=== PATIENT | male | born 1975 | race Caucasian/White ===

== ENCOUNTER 2018-08-14 22:01 | Emergency (ER) | payer SELFPAY ==
[2018-08-14 22:14] VITALS: BP 147/90
[2018-08-14] MEDS ORDERED: Lidocaine 2% with EPINEPHrine 1:200,000 20 ML SDV ONE (22:41)
[2018-08-14] MEDS ORDERED: Lidocaine 2% with EPINEPHrine 1:200,000 20 ML SDV INJECT ONE (22:41)
[2018-08-14] MEDS ORDERED: Bacitracin/Neomycin/Polymyxin B Oint 0.9 GM U/D Packet TOP ONE (23:08)
[2018-08-14] MEDS ORDERED: Bacitracin/Neomycin/Polymyxin B Oint 0.9 GM U/D Packet ONE (23:08)
--- NOTE | 2018-08-14 23:18 | EDM.PDOC ---
ED HPI GENERAL MEDICAL PROBLEM - General Chief Complaint: Laceration Stated Complaint: head injury Time Seen by Provider: 08/14/18 22:20 Source of Information: Reports: Patient History Limitations: Reports: No Limitations - History of Present Illness INITIAL COMMENTS - FREE TEXT/NARRATIVE: 42-year-old male presents to the emergency room with a deep head scalp laceration. Patient states that he was at a park with the kids running when he ran into a 2 x 4 directly on the top of his head. He had immediate bleeding. He went home showered and upon further investigation by his she brought him in to have this laceration repaired as it was quite deep and gaping. He denies any loss of consciousness. He mainly complains of scalp tenderness. He does notice a little bit and neck soreness. He denies any numbness or tingling in his arms. Other than a mild headache he has no other complaints. Onset: Today Onset Date: 08/14/18 Onset Time: 21:00 Duration: Minutes:, Constant Location: Reports: Head Quality: Reports: Ache Severity: Mild Improves with: Reports: None Worsens with: Reports: None Associated Symptoms: Reports: No Other Symptoms - Related Data Allergies Allergy/AdvReac Type Severity Reaction Status Date / Time No Known Drug Allergies Allergy Cannot Verified 08/14/18 22:13 Remember Home Meds: Home Meds Cyclobenzaprine [Flexeril] 10 mg PO BEDTIME PRN 08/14/18 [History] Past Medical History Musculoskeletal History: Reports: Back Pain, Chronic Psychiatric History: Reports: Addiction Social & Family History - Family History Family Medical History: Noncontributory - Living Situation & Occupation Living situation: Reports: Single, with Family Occupation: Unemployed ED ROS GENERAL - Review of Systems Review Of Systems: ROS reveals no pertinent complaints other than HPI. ED EXAM, SKIN/RASH Exam: See Below Exam Limited By: No Limitations General Appearance: Alert, WD/WN, No Apparent Distress Eye Exam: Bilateral Eye: Abnormal EOM, PERRL Ears: Normal External Exam, Hearing Grossly Normal, Normal TMs Nose: Normal Inspection, Normal Mucosa, No Blood Throat/Mouth: Normal Inspection Head: Other (Scalp tenderness mild ecchymosis hematoma at the top of the scalp. There is a 12 cm half circumferential full-thickness laceration.) Neck: Normal Inspection, Supple, Non-Tender, Full Range of Motion. No: Tender Lateral, Tender Midline Respiratory/Chest: No Respiratory Distress Back Exam: Normal Inspection, Full Range of Motion Extremities: Normal Inspection, Normal Range of Motion Neurological: Alert, Oriented, CN II-XII Intact, Normal Cognition, No Motor/ Sensory Deficits Psychiatric: Normal Affect, Normal Mood Skin: Warm, Dry, Intact, Normal Color, No Rash Location, Skin: Head, Other (12 cm full-thickness laceration in a half troncoso or half circumferential pattern.) ED SKIN PROCEDURES - Laceration/Wound Repair [place] Head Appearance: Subcutaneous, Other (Half-troncoso or half circumferential pattern) Distal NVT: Neuro & Vascular Intact Local Anesthesia - Lidocaine (Xylocaine): 2% with EPI Local Anesthetic Volume: Other (20 mL) Skin Prep: Chlorhexidine (Hibiciens) Exploration/Debridement/Repair: Wound Explored, In a Bloodless Field Closed with: Darin Drain Placement: No Sterile Dressing Applied: Nurse Tetanus Status Addressed: Yes Complications: No Course - Vital Signs Last Recorded V/S: Last Vital Signs Temp 98.6 F 08/14/18 22:13 Pulse 82 08/14/18 22:13 Resp 20 08/14/18 22:13 BP 147/90 H 08/14/18 22:13 Pulse Ox 97 08/14/18 22:13 - Orders/Labs/Meds Meds: Medications Discontinued Medications Generic Name Dose Route Start Last Admin Trade Name Kiran PRN Reason Stop Dose Admin Lidocaine/Epinephrine Confirm 08/14/18 22:41 Xylocaine-Mpf 2%-Epi 1:200,000 Administered 08/14/18 22:42 Dose 20 ml .ROUTE .STK-MED ONE Neomycin/Polymyxin/Bacitracin Confirm 08/14/18 23:08 Triple Antibiotic Oint Administered 08/14/18 23:09 Dose 1 each .ROUTE .STK-MED ONE Departure - Departure Time of Disposition: 23:40 Disposition: Home, Self-Care 01 Condition: Good Clinical Impression: Laceration of head Qualifiers: Encounter type: initial encounter Location of open wound of head: scalp Foreign body presence: without foreign body Qualified Code(s): S01.01XA - Laceration without foreign body of scalp, initial encounter - Discharge Information Instructions: Laceration Care, Adult, Wound Closure Removal Forms: ED Department Discharge - Assessment/Plan Assessment:: Head laceration 12 cm full-thickness in length Plan: 1. Keep laceration clean dry and intact. 2. Keep laceration out of the open sun 3. Staple removal in 5-7 days. 4. tetanus was updated today.
[2018-08-14] MEDS ORDERED: Diphtheria,Pertussis(Acell),Tetanus Vaccine 0.5 ML SDV IM ONE (23:19)
== END 2018-08-14 23:20 | disposition home or self-care (01) ==
LOC: KA.ED 22:01
DX: S01.01XA Laceration without foreign body of scalp, initial encounter (principal); Z23 Encounter for immunization; W19.XXXA Unspecified fall, initial encounter
CPT/HCPCS: 12004; 90471; 90715; 99283

== ENCOUNTER 2023-11-15 14:24 | Inpatient (IN) | payer BC, MEDICAID ==
[2023-11-15] MEDS ORDERED: Sodium Chloride 0.9% 10 ML Syringe FLUSH PRN (14:36)
[2023-11-15] MEDS: Albuterol/Ipratropium 3.0-0.5 MG/3 ML Neb Soln NEB ONE (14:41)
[2023-11-15] MEDS: Sodium Chloride 0.9% 1,000 ML IV ONE ×2 (14:42→16:01)
[2023-11-15] MEDS: LORazepam 2 MG/ML SDV IVPUSH ONE (14:43)
[2023-11-15 14:47] LABS: BASOPHILS ABSOLUTE AUTO 0.06 10^3/uL (0.00-0.10); BASOPHILS PERCENT AUTO 0.3 % (0.0-1.0); EOSINOPHILS ABSOLUTE AUTO 0.02 10^3/uL (0.10-0.30); EOSINOPHILS PERCENT AUTO 0.1 % (1.0-3.0); HEMATOCRIT 49.7 % (40.0-52.0); HEMOGLOBIN 16.2 g/dL (13.0-17.0); IMMATURE GRAN ABSOLUTE AUTO 0.02 10^3/uL (0.00-0.50); IMMATURE GRAN PERCENT AUTO 0.1 % (0.0-5.0); LYMPHOCYTES ABSOLUTE AUTO 5.15 10^3/uL (1.00-4.00); LYMPHOCYTES PERCENT AUTO 27.3 % (20.0-40.0); MEAN CORPUSCULAR HEMOGLOBIN 29.6 pg (27.0-31.0); MEAN CORPUSCULAR HGB CONC 32.6 g/dL (32.0-36.0); MEAN CORPUSCULAR VOLUME 90.7 fL (82.0-92.0); MEAN PLATELET VOLUME 8.5 fL (7.4-10.4); MONOCYTES ABSOLUTE AUTO 1.39 10^3/uL (0.10-0.80); MONOCYTES PERCENT AUTO 7.4 % (2.0-8.0); NEUTROPHILS ABSOLUTE AUTO 12.23 10^3/uL (2.50-7.00); NEUTROPHILS PERCENT AUTO 64.8 % (50.0-70.0); PLATELET COUNT,PLT 466 10^3/uL (150-400); RED BLOOD CELL COUNT 5.48 10^6/uL (4.50-6.00); RED CELL DISTRIBUTION WIDTH 13.1 % (11.5-14.5); WHITE BLOOD CELL COUNT,WBC 18.87 10^3/uL (5.00-10.00)
[2023-11-15 15:12] LABS: ALBUMIN 4.48 g/dL (3.40-5.00); ANION GAP 31.4 mmol/L (5-15); BILIRUBIN TOTAL 0.8 mg/dL (0.2-1.0); CALCIUM 9.6 mg/dL (8.7-10.3); CREATININE 1.72 mg/dL (0.51-1.17); EST CRCL DRUG DOSING (CG) 47.91 mL/min; POTASSIUM,K 3.4 mmol/L (3.5-5.1); PROTEIN TOTAL,TP 9.1 g/dL (6.4-8.2)
[2023-11-15] MEDS: methylPREDNISolone Sodium Succinate 125 MG/2 ML SDV IVPUSH ONE (15:20)
[2023-11-15] MEDS: Sodium Chloride 0.9% 50 ML IV SCH (15:42)
[2023-11-15] MEDS: Iopamidol 755 Mg/ML 100 ML Bottle IV ONE (15:42)
[2023-11-15] MEDS: Cefepime 2 GM Vial IVPUSH ONE (16:06)
[2023-11-15 19:43] LABS: APPEARANCE,URINE CLEAR (CLEAR); BILIRUBIN,URINE NEGATIVE (NEGATIVE); COLOR,URINE YELLOW (YELLOW); GLUCOSE,URINE NEGATIVE (NEGATIVE); KETONES,URINE >=160 mg/dL (NEGATIVE); LEUKOCYTE ESTERASE,URINE NEGATIVE (NEGATIVE); NITRITE,URINE NEGATIVE (NEGATIVE); PH,URINE 5.5 (5.0-9.0); PROTEIN,URINE NEGATIVE (NEGATIVE); UROBILINOGEN,URINE 0.2 E.U./dL (0.2-1.0)
[2023-11-15 19:50] LABS: OCCULT BLOOD,URINE SMALL (NEGATIVE)
[2023-11-15 19:51] LABS: BACTERIA,URINE RARE /HPF (NONE TO FEW); EPITHELIAL CELLS,URINE RARE /LPF; WBC,URINE 0-5 /HPF (0-5)
[2023-11-15] MEDS ORDERED: Albuterol 0.083% 2.5 MG/3 ML Neb Soln NEB PRN (20:49)
[2023-11-15] MEDS ORDERED: Acetaminophen 325 MG Tab PO PRN (20:49)
[2023-11-15] MEDS: Potassium Chloride 20 MEQ Tab.ER PO ONE (21:27)
[2023-11-15] MEDS: Sodium Chloride 0.9% 1,000 ML IV SCH (22:20)
[2023-11-16] MEDS: Cefepime 1 GM in Sodium Chloride 0.9% 50 ML IV SCH (03:07)
[2023-11-16] MEDS ORDERED: Cefepime 1 GM Vial IM SCH (04:00)
[2023-11-16 07:45] LABS: ANION GAP 14.1 mmol/L (5-15); CALCIUM 8.6 mg/dL (8.7-10.3); CARBON DIOXIDE,CO2 23.8 mmol/L (21.0-32.0); CREATININE 0.98 mg/dL (0.51-1.17); EST CRCL DRUG DOSING (CG) 84.09 mL/min; MAGNESIUM 2.2 mg/dL (1.8-2.4); POTASSIUM,K 4.9 mmol/L (3.5-5.1)
[2023-11-16 08:08] LABS: BASOPHILS ABSOLUTE AUTO 0.02 10^3/uL (0.00-0.10); BASOPHILS PERCENT AUTO 0.1 % (0.0-1.0); EOSINOPHILS ABSOLUTE AUTO 0.01 10^3/uL (0.10-0.30); EOSINOPHILS PERCENT AUTO 0.1 % (1.0-3.0); HEMATOCRIT 42.9 % (40.0-52.0); HEMOGLOBIN 14.2 g/dL (13.0-17.0); IMMATURE GRAN ABSOLUTE AUTO 0.03 10^3/uL (0.00-0.50); IMMATURE GRAN PERCENT AUTO 0.2 % (0.0-5.0); LYMPHOCYTES ABSOLUTE AUTO 2.63 10^3/uL (1.00-4.00); MEAN CORPUSCULAR HEMOGLOBIN 30.6 pg (27.0-31.0); MEAN CORPUSCULAR HGB CONC 33.1 g/dL (32.0-36.0); MEAN CORPUSCULAR VOLUME 92.5 fL (82.0-92.0); MEAN PLATELET VOLUME 8.7 fL (7.4-10.4); MONOCYTES ABSOLUTE AUTO 1.46 10^3/uL (0.10-0.80); MONOCYTES PERCENT AUTO 9.5 % (2.0-8.0); NEUTROPHILS ABSOLUTE AUTO 11.28 10^3/uL (2.50-7.00); NEUTROPHILS PERCENT AUTO 73.1 % (50.0-70.0); PLATELET COUNT,PLT 370 10^3/uL (150-400); RED BLOOD CELL COUNT 4.64 10^6/uL (4.50-6.00); RED CELL DISTRIBUTION WIDTH 13.1 % (11.5-14.5); WHITE BLOOD CELL COUNT,WBC 15.43 10^3/uL (5.00-10.00)
[2023-11-16] MEDS: predniSONE 20 MG Tab PO SCH (08:35)
[2023-11-16] MEDS: Sodium Chloride 0.9% 100 ML IV SCH (12:23)
[2023-11-16] MEDS: Iopamidol 755 Mg/ML 100 ML Bottle IV ONE (12:23)
[2023-11-16] MEDS: methylPREDNISolone Sodium Succinate 40 MG/1 ML SDV IVPUSH SCH (16:18)
[2023-11-16] MEDS: Albuterol/Ipratropium 3.0-0.5 MG/3 ML Neb Soln NEB SCH (16:18)
[2023-11-17] MEDS: Cyclobenzaprine 10 MG Tab PO PRN (05:55)
[2023-11-17] MEDS: Naproxen 500 MG Tab PO PRN (05:55)
[2023-11-17 07:25] LABS: BASOPHILS ABSOLUTE AUTO 0.01 10^3/uL (0.00-0.10); BASOPHILS PERCENT AUTO 0.1 % (0.0-1.0); EOSINOPHILS ABSOLUTE AUTO 0.02 10^3/uL (0.10-0.30); EOSINOPHILS PERCENT AUTO 0.1 % (1.0-3.0); HEMATOCRIT 43.5 % (40.0-52.0); HEMOGLOBIN 14.1 g/dL (13.0-17.0); IMMATURE GRAN ABSOLUTE AUTO 0.03 10^3/uL (0.00-0.50); IMMATURE GRAN PERCENT AUTO 0.2 % (0.0-5.0); LYMPHOCYTES ABSOLUTE AUTO 2.46 10^3/uL (1.00-4.00); LYMPHOCYTES PERCENT AUTO 14.9 % (20.0-40.0); MEAN CORPUSCULAR HGB CONC 32.4 g/dL (32.0-36.0); MEAN CORPUSCULAR VOLUME 92.6 fL (82.0-92.0); MEAN PLATELET VOLUME 8.6 fL (7.4-10.4); MONOCYTES ABSOLUTE AUTO 1.19 10^3/uL (0.10-0.80); MONOCYTES PERCENT AUTO 7.2 % (2.0-8.0); NEUTROPHILS ABSOLUTE AUTO 12.75 10^3/uL (2.50-7.00); NEUTROPHILS PERCENT AUTO 77.5 % (50.0-70.0); PLATELET COUNT,PLT 391 10^3/uL (150-400); RED CELL DISTRIBUTION WIDTH 13.1 % (11.5-14.5); WHITE BLOOD CELL COUNT,WBC 16.46 10^3/uL (5.00-10.00)
[2023-11-17 07:43] LABS: ALBUMIN 3.63 g/dL (3.40-5.00); BILIRUBIN TOTAL 0.3 mg/dL (0.2-1.0); CARBON DIOXIDE,CO2 25.7 mmol/L (21.0-32.0); CREATININE 0.91 mg/dL (0.51-1.17); EST CRCL DRUG DOSING (CG) 90.56 mL/min; POTASSIUM,K 3.7 mmol/L (3.5-5.1); PROTEIN TOTAL,TP 7.4 g/dL (6.4-8.2)
[2023-11-17] MEDS: Pantoprazole 40 MG Tab.CR PO SCH (10:09)
[2023-11-17] MEDS: Doxycycline Monohydrate 100 MG Cap PO ONE (10:09)
[2023-11-18 07:35] LABS: BASOPHILS ABSOLUTE AUTO 0.03 10^3/uL (0.00-0.10); BASOPHILS PERCENT AUTO 0.3 % (0.0-1.0); EOSINOPHILS ABSOLUTE AUTO 0.09 10^3/uL (0.10-0.30); HEMATOCRIT 42.2 % (40.0-52.0); HEMOGLOBIN 13.4 g/dL (13.0-17.0); IMMATURE GRAN ABSOLUTE AUTO 0.01 10^3/uL (0.00-0.50); IMMATURE GRAN PERCENT AUTO 0.1 % (0.0-5.0); LYMPHOCYTES ABSOLUTE AUTO 3.41 10^3/uL (1.00-4.00); LYMPHOCYTES PERCENT AUTO 37.8 % (20.0-40.0); MEAN CORPUSCULAR HEMOGLOBIN 29.8 pg (27.0-31.0); MEAN CORPUSCULAR HGB CONC 31.8 g/dL (32.0-36.0); MEAN CORPUSCULAR VOLUME 93.8 fL (82.0-92.0); MEAN PLATELET VOLUME 8.7 fL (7.4-10.4); MONOCYTES ABSOLUTE AUTO 0.86 10^3/uL (0.10-0.80); MONOCYTES PERCENT AUTO 9.5 % (2.0-8.0); NEUTROPHILS ABSOLUTE AUTO 4.62 10^3/uL (2.50-7.00); NEUTROPHILS PERCENT AUTO 51.3 % (50.0-70.0); PLATELET COUNT,PLT 350 10^3/uL (150-400); RED CELL DISTRIBUTION WIDTH 13.3 % (11.5-14.5); WHITE BLOOD CELL COUNT,WBC 9.02 10^3/uL (5.00-10.00)
[2023-11-18 07:53] LABS: ANION GAP 11.5 mmol/L (5-15); CALCIUM 8.7 mg/dL (8.7-10.3); CARBON DIOXIDE,CO2 28.7 mmol/L (21.0-32.0); CREATININE 1.01 mg/dL (0.51-1.17); EST CRCL DRUG DOSING (CG) 81.59 mL/min; MAGNESIUM 1.7 mg/dL (1.8-2.4); POTASSIUM,K 4.2 mmol/L (3.5-5.1)
[2023-11-18] MEDS: predniSONE 20 MG Tab PO SCH (07:57)
[2023-11-18] MEDS: Sodium Chloride 0.9% 1,000 ML IV ONE (07:57)
[2023-11-18] MEDS: Cefdinir 300 MG Cap PO SCH (07:59)
[2023-11-18] MEDS: Magnesium Oxide 500 MG Tab PO ONE (09:30)
[2023-11-18 14:20] VITALS: BP 152/79; PULSE 85
== END 2023-11-18 14:04 | disposition home or self-care (01) | DRG 469 ==
LOC: KA.ED 14:24 → UNDOADMOB 18:28 → KA.MS 18:28 → OBSVTOIN 19:16 → INTOOBSV 19:16 → UNDODISIN 11-18 14:04
PROVIDERS: ADMIT Internal Medicine; ATTEND Family Medicine
DX: N17.9 Acute kidney failure, unspecified (principal); R65.10 Systemic inflammatory response syndrome (SIRS) of non-infectious origin without acute organ dysfunction; G89.29 Other chronic pain; J44.9 Chronic obstructive pulmonary disease, unspecified; M54.9 Dorsalgia, unspecified; J45.909 Unspecified asthma, uncomplicated; K04.7 Periapical abscess without sinus; N28.9 Disorder of kidney and ureter, unspecified; F17.210 Nicotine dependence, cigarettes, uncomplicated; Z79.899 Other long term (current) drug therapy
CPT/HCPCS: 36415; 70360; 70491; 71045; 71275; 80048; 80053; 81001; 83605; 83735; 84484; 85025; 87040; 92610-GN; 93005; 93010; 94640; 96361; 96365; 96374; 96375; 96376; 99223-GT; 99232-GT; 99233-GT; 99239-GT; 99284; 99285-25; A9270-GY; G0378; J0692; J2060; J2919; J3490; J7030; J7512; J7620-GY; Q3014; Q9967